=== PATIENT | male | born 1995 | race Caucasian/White ===

== ENCOUNTER 2019-07-17 14:48 | Emergency (ER) | payer MEDICAID ==
[~2019-07-17] VITALS: Ht 182.9 cm; Wt 77.6 kg
[2019-07-17] MEDS ORDERED: ONDANSETRON 4 MG/2 ML VIAL IM ONE (16:15)
[2019-07-17] MEDS ORDERED: MORPHINE SULFATE 4 MG/1 ML DISP.SYRIN IM ONE (16:15)
[2019-07-17] MEDS ORDERED: MORPHINE SULFATE 4 MG/1 ML DISP.SYRIN ONE (16:31)
[2019-07-17] MEDS ORDERED: ONDANSETRON 4 MG/2 ML VIAL ONE (16:32)
--- NOTE | 2019-07-17 17:29 | NUR ---
PT WAS EVALUATED BY DR RHOADES. PT WAS D/C'd TO HOME. D/C INSTRUCTIONS GIVEN TO THE PT.
[2019-07-17 17:30] VITALS: BP 136/81
== END 2019-07-17 17:41 | disposition home or self-care (01) ==
LOC: ER 14:48
DX: S79.912A Unspecified injury of left hip, initial encounter (principal); W01.0XXA Fall on same level from slipping, tripping and stumbling without subsequent striking against object, initial encounter; Y93.89 Activity, other specified; Y92.89 Other specified places as the place of occurrence of the external cause; Y99.8 Other external cause status
CPT/HCPCS: 73502; 96372 ×2; 99284; J2270; J2405; A4663